=== PATIENT | female | born 1990 | race Hispanic/Latino ===

== ENCOUNTER 2018-10-03 02:48 | Emergency (ER) | payer SELFPAY ==
--- OUTSIDE RECORDS SUMMARY | 2018-10-03 02:50 | XMS REPORT ---
:1990 [facility] [place] [address] Care Team Providers Name Role Phone Unavailable Unavailable Unavailable Problems This patient has no known problems. Allergies, Adverse Reactions, Alerts This patient has no known allergies or adverse reactions. Medications This patient has no known medications.
[2018-10-03 03:40] LABS: Urine Blood 3+ (NEG); Urine Glucose NEGATIVE (NEG); Urine Protein 2+ (NEG); Urine Specific Gravity >1.030 (1.005-1.030); Urine pH 5.5 (5.0-7.0)
[2018-10-03] MEDS ORDERED: WATER FOR INJ,STERILE 10 ML ONE (03:41)
[2018-10-03] MEDS ORDERED: CEFTRIAXONE 1000 MG/VIAL ONE (03:41)
[2018-10-03] MEDS ORDERED: PHENAZOPYRIDINE 100MG TAB PO ONE (03:41)
[2018-10-03] MEDS ORDERED: CIPROFLOXACIN HCL 500 MG TAB ONE (03:41)
--- NOTE | 2018-10-03 05:16 | ER ---
Nurse's Notes [facility] Name: Jacqueline Hinojosa Age: 28 yrs Sex: Female : 1990 Arrival Date: 10/03/2018 Time: 02:49 Bed 6 Private MD: Diagnosis: Urinary tract infection, site not specified;Dysuria Presentation: 10/03 03:00 Presenting complaint: Patient states: "Lower abdominal pain since 3 days, I took extra cc3 strength Azo pills for the past 3 days but no relief. I also feel pain when urinating". Transition of care: patient was not received from another setting of care. Onset of symptoms was September 29, 2018. Risk Assessment: Do you want to hurt yourself or someone else? Patient reports no desire to harm self or others. Initial Sepsis Screen: Does the patient meet any 2 criteria? No. Patient's initial sepsis screen is negative. Does the patient have a suspected source of infection? No. Patient's initial sepsis screen is negative. Care prior to arrival: None. 03:00 Method Of Arrival: Ambulatory cc3 03:00 Acuity: HAWA 4 cc3 Triage Assessment: 03:00 General: Appears in no apparent distress. uncomfortable, Behavior is calm, cooperative, cc3 appropriate for age. Pain: Complains of pain in lower abdomen, when urinating Pain currently is 6 out of 10 on a pain scale. Quality of pain is described as aching. EENT: No signs and/or symptoms were reported regarding the EENT system. Neuro: Level of Consciousness is awake, alert, obeys commands, Oriented to person, place, time, situation, Appropriate for age. Cardiovascular: Denies chest pain, Patient's skin is warm and dry. Respiratory: Airway is patent Respiratory effort is even, unlabored, Respiratory pattern is regular, symmetrical. GI: Abdomen is round non-distended. : Reports pain with urination. Derm: No signs and/or symptoms reported regarding the dermatologic system. Musculoskeletal: Circulation, motion, and sensation intact. Range of motion: intact in all extremities. 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 - Social history:: Smoking status: Patient/guardian denies using tobacco, never smoked. - Ebola Screening: : No symptoms or risks identified at this time. - Family history:: not pertinent. Screenin:00 Abuse screen: Denies threats or abuse. Denies injuries from another. Nutritional cc3 screening: No deficits noted. Tuberculosis screening: No symptoms or risk factors identified. Fall Risk Ambulatory Aid- None/Bed Rest/Nurse Assist (0 pts). Gait- Normal/Bed Rest/Wheelchair (0 pts) Mental Status- Oriented to own ability (0 pts). Assessment: 03:00 GI: Bowel sounds present X 4 quads. Abd is soft and non tender X 4 quads. cc3 04:02 Reassessment: Patient appears in no apparent distress at this time. Patient and/or cc3 family updated on plan of care and expected duration. Pain level reassessed. Patient is alert, oriented x 3, equal unlabored respirations, skin warm/dry/pink. 05:00 Reassessment: Patient appears in no apparent distress at this time. Patient and/or cc3 family updated on plan of care and expected duration. Pain level reassessed. Patient is alert, oriented x 3, equal unlabored respirations, skin warm/dry/pink. Dr. Grayson discharged the patient home with prescriptions given. No IV cannula in situ. Patient left ER vitally stable and ambulatory. Patient states feeling better. Patient states symptoms have improved. Vital Signs: 03:00 BP 126 / 84; Pulse 64; Resp 18 S; Temp 98.5(O); Pulse Ox 99% on R/A; Weight 59.87 kg cc3 (R); Height 5 ft. 0 in. (152.40 cm) (R); Pain 6/10; 04:03 BP 127 / 84; Pulse 64; Resp 16 S; Pulse Ox 100% on R/A; cc3 05:00 BP 123 / 87; Pulse 65; Resp 16 S; Pulse Ox 100% on R/A; cc3 03:00 Body Mass Index 25.78 (59.87 kg, 152.40 cm) cc3 ED Course: 02:49 Patient arrived in ED. ds1 02:54 Daniel Grayson MD is Attending Physician. kendrick 02:57 Myriam Frey is Primary Nurse. cc3 03:00 Arm band placed on right wrist. Patient notified of wait time. cc3 03:00 Patient has correct armband on for positive identification. Bed in low position. Call cc3 light in reach. Side rails up X 1. Pulse ox on. NIBP on. 03:07 Triage completed. cc3 05:00 No provider procedures requiring assistance completed. Patient did not have IV access cc3 during this emergency room visit. Administered Medications: 03:30 Drug: Cipro 500 mg Route: PO; cc3 03:36 Follow up: Response: No adverse reaction cc3 03:30 Drug: Pyridium 200 mg Route: PO; cc3 03:36 Follow up: Response: No adverse reaction cc3 03:31 Drug: Rocephin (cefTRIAXone) 1 grams Route: IM; Site: right gluteus; cc3 03:37 Follow up: Response: No adverse reaction cc3 Outcome: 04:58 Discharge ordered by . [facility] 05:00 Discharged to home ambulatory. cc3 05:00 Condition: stable 05:00 Discharge instructions given to patient, Instructed on discharge instructions, follow up and referral plans. medication usage, Demonstrated understanding of instructions, follow-up care, medications, Prescriptions given X 3. 05:11 Patient left the ED. cc3 Signatures: Daniel Grayson MD MD cha Sanford, Demi ds1 Myriam Frey cc3
--- NOTE | 2018-10-03 05:16 | EDPHYS ---
Physician Documentation [facility] Name: Jacqueline Hinojosa Age: 28 yrs Sex: Female : 1990 Arrival Date: 10/03/2018 Time: 02:49 Bed 6 Private MD: ED Physician Daniel Grayson HPI: 10/03 03:09 This 28 yrs old Female presents to ER via Ambulatory with complaints of kendrick Abdominal Pain. 03:09 The patient presents with urinary symptoms, dysuria, frequency, urgency. Onset: The kendrick symptoms/episode began/occurred 3 day(s) ago. Modifying factors: The symptoms are alleviated by nothing, the symptoms are aggravated by nothing. Associated signs and symptoms: The patient has no apparent associated signs or symptoms. Severity of symptoms: At their worst the symptoms were moderate, in the emergency department the symptoms are unchanged. The patient has experienced similar episodes in the past, several times. 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 - Social history:: Smoking status: Patient/guardian denies using tobacco, never smoked. - Ebola Screening: : No symptoms or risks identified at this time. - Family history:: not pertinent. ROS: 03:09 Constitutional: Negative for fever, chills, and weight loss, Eyes: Negative for injury, kendrick pain, redness, and discharge, ENT: Negative for injury, pain, and discharge, Neck: Negative for injury, pain, and swelling, Cardiovascular: Negative for chest pain, palpitations, and edema, Respiratory: Negative for shortness of breath, cough, wheezing, and pleuritic chest pain, Back: Negative for injury and pain, MS/Extremity: Negative for injury and deformity, Skin: Negative for injury, rash, and discoloration, Neuro: Negative for headache, weakness, numbness, tingling, and seizure, Psych: Negative for depression, anxiety, suicide ideation, homicidal ideation, and hallucinations, Allergy/Immunology: Negative for hives, rash, and allergies, Endocrine: Negative for neck swelling, polydipsia, polyuria, polyphagia, and marked weight changes, Hematologic/Lymphatic: Negative for swollen nodes, abnormal bleeding, and unusual bruising. 03:09 Abdomen/GI: Positive for abdominal pain, of the suprapubic area. 03:09 : Positive for urinary symptoms, urinary frequency, burning with urination, difficulty urinating. Exam: 03:09 Constitutional: This is a well developed, well nourished patient who is awake, alert, kendrick and in no acute distress. Head/Face: Normocephalic, atraumatic. Eyes: Pupils equal round and reactive to light, extra-ocular motions intact. Lids and lashes normal. Conjunctiva and sclera are non-icteric and not injected. Cornea within normal limits. Periorbital areas with no swelling, redness, or edema. ENT: Nares patent. No nasal discharge, no septal abnormalities noted. Tympanic membranes are normal and external auditory canals are clear. Oropharynx with no redness, swelling, or masses, exudates, or evidence of obstruction, uvula midline. Mucous membranes moist. Neck: Trachea midline, no thyromegaly or masses palpated, and no cervical lymphadenopathy. Supple, full range of motion without nuchal rigidity, or vertebral point tenderness. No Meningismus. Chest/axilla: Normal chest wall appearance and motion. Nontender with no deformity. No lesions are appreciated. Cardiovascular: Regular rate and rhythm with a normal S1 and S2. No gallops, murmurs, or rubs. Normal PMI, no JVD. No pulse deficits. Respiratory: Lungs have equal breath sounds bilaterally, clear to auscultation and percussion. No rales, rhonchi or wheezes noted. No increased work of breathing, no retractions or nasal flaring. Back: No spinal tenderness. No costovertebral tenderness. Full range of motion. Skin: Warm, dry with normal turgor. Normal color with no rashes, no lesions, and no evidence of cellulitis. MS/ Extremity: Pulses equal, no cyanosis. Neurovascular intact. Full, normal range of motion. Neuro: Awake and alert, GCS 15, oriented to person, place, time, and situation. Cranial nerves II-XII grossly intact. Motor strength 5/5 in all extremities. Sensory grossly intact. Cerebellar exam normal. Normal gait. 03:09 Abdomen/GI: Inspection: abdomen appears normal, Bowel sounds: normal, Palpation: abdomen is soft and non-tender, Liver: no appreciated palpable abnormalities, Hernia: not appreciated. Vital Signs: 03:00 BP 126 / 84; Pulse 64; Resp 18 S; Temp 98.5(O); Pulse Ox 99% on R/A; Weight 59.87 kg 3 (R); Height 5 ft. 0 in. (152.40 cm) (R); Pain 6/10; 04:03 BP 127 / 84; Pulse 64; Resp 16 S; Pulse Ox 100% on R/A; cc3 05:00 BP 123 / 87; Pulse 65; Resp 16 S; Pulse Ox 100% on R/A; 3 03:00 Body Mass Index 25.78 (59.87 kg, 152.40 cm) [facility] MDM: 02:55 Patient medically screened. [facility] 03:11 Data reviewed: vital signs, nurses notes, lab test result(s), urinalysis. [facility] 10/03 03:08 Order name: Urine Culture [facility] 10/03 03:18 Order name: Urine Dipstick--Ancillary (enter results); Complete Time: 04:58 [facility] 10/03 03:18 Order name: Urine --Ancillary (enter results); Complete Time: 04:58 [facility] 10/03 03:08 Order name: Urine Dipstick-Ancillary (obtain specimen); Complete Time: 03:20 [facility] 10/03 03:08 Order name: Urine Test (obtain specimen); Complete Time: 03:20 [facility] Administered Medications: 03:30 Drug: Cipro 500 mg Route: PO; 3 03:36 Follow up: Response: No adverse reaction 3 03:30 Drug: Pyridium 200 mg Route: PO; cc3 03:36 Follow up: Response: No adverse reaction [facility] 03:31 Drug: Rocephin (cefTRIAXone) 1 grams Route: IM; Site: right gluteus; cc3 03:37 Follow up: Response: No adverse reaction 3 Disposition: 10/03/18 04:58 Discharged to Home. Impression: Urinary tract infection, site not specified, Dysuria. - Condition is Stable. - Discharge Instructions: Dysuria, Urinary Tract Infection, Adult, Urinary Tract Infection, Adult, [id number]. - Prescriptions for Pyridium 200 mg Oral Tablet - take 1 tablet by ORAL route every 8 hours for 3 days; 9 tablet. Cipro 500 mg Oral Tablet - take 1 tablet by ORAL route every 12 hours for 7 days; 14 tablet. Bactrim DS 800- 160 mg Oral Tablet - take 1 tablet by ORAL route every 12 hours for 3 days; 6 tablet. - Medication Reconciliation Form, Thank You Letter, Antibiotic Education, Prescription Opioid Use form. - Follow up: Private Physician; When: 2 - 3 days; Reason: Recheck today's complaints, Continuance of care, Re-evaluation by your physician. - Problem is new. - Symptoms have improved. Signatures: Dispatcher [employer] EDDaniel Mcginnis MD MD cha Cordel, Charlene cc3 Corrections: (The following items were deleted from the chart) 05:11 04:58 10/03/2018 04:58 Discharged to Home. Impression: Urinary tract infection, site cc3 not specified; Dysuria. Condition is Stable. Discharge Instructions: Dysuria, Urinary Tract Infection, Adult, Urinary Tract Infection, Adult, [id number]. Prescriptions for Pyridium 200 mg Oral Tablet - take 1 tablet by ORAL route every 8 hours for 3 days; 9 tablet, Cipro 500 mg Oral Tablet - take 1 tablet by ORAL route every 12 hours for 7 days; 14 tablet, Bactrim DS 800-160 mg Oral Tablet - take 1 tablet by ORAL route every 12 hours for 3 days; 6 tablet. and Forms are Medication Reconciliation Form, Thank You Letter, Antibiotic Education, Prescription Opioid Use. Follow up: Private Physician; When: 2 - 3 days; Reason: Recheck today's complaints, Continuance of care, Re-evaluation by your physician. Problem is new. Symptoms have improved. kendrick
== END 2018-10-03 05:11 | disposition home or self-care (01) ==
LOC: ER 02:48
DX: N39.0 Urinary tract infection, site not specified (principal)
CPT/HCPCS: 81003; 81025; 87086; 87088; 96372; 99283